=== PATIENT | male | born 1955 | race Caucasian/White ===

== ENCOUNTER → 2021-11-24 | Outpatient (CLI) | payer MEDICARE, OTHER ==
[~2021-11-24] MED LIST: AUGMENTIN 875-1 EACH PO; FLOVENT 220.1 GM/INH INH; IBUPROFEN800 MG PO; MEDROL DOSEPAK 24 MG PO; OCUFLOX5 ML EARBOTH; PROAIR DIGIHAL90 MCG INH; SILODOSIN8 MG PO; TESSALON PERLE100 MG PO; VISTARIL 50 MG50 MG PO; ZITHROMAX250 MG PO; ZOFRAN 4 MG TAB4 MG PO
== END ==
LOC: EMI 10:34
DX: M25.552 Pain in left hip (principal); N40.2 Nodular prostate without lower urinary tract symptoms
CPT/HCPCS: 73721